=== PATIENT | female | born 1945 | race Caucasian/White ===

== ENCOUNTER 2018-01-01 18:11 | Observation (INO) | payer MEDICARE ==
[~2018-01-01] VITALS: Ht 157.5 cm; Wt 59.7 kg
[~2018-01-01 18:11] MED LIST: ASPI81CH PO; ASPI81EC PO; Aspir 8181 MG PO; CALCA500CH PO; CALCAVITD PO; CALCAVITDA PO; CENTRUM COMPLE1 EACH PO; CEPH500 PO; Colace100 MG PO; ENOX40I INJ; Fosamax70 MG PO; Golytely Packe1 EACH PO; HYDACE10B PO; HYDACE5325 PO; Hair, Skin & N1 EACH PO; IBUP400 PO; LORA1 PO; MECL25 PO; MULTIVITAMIN PO; OXYACE5T PO; PRAV10 PO; PRAV20 PO; PRAVASTATIN SOD10 MG PO; PROM25 PO; Percocet 5-3251 EACH PO; Pravachol20 MG PO; [UNRECOGNIZED DRUG - OTHER] PO; [UNRECOGNIZED DRUG - REMARK]
[2018-01-01 19:09] LABS: BASOPHILS ABSOLUTE AUTO 0.01 K/mm3 (0.00-0.23); BASOPHILS PERCENT AUTO 0 % (0-2); EOSINOPHILS ABSOLUTE AUTO 0.06 K/mm3 (0.00-0.68); EOSINOPHILS PERCENT AUTO 1 % (0-6); Hematocrit 37.8 % (33.0-51.0); Hemoglobin 12.4 g/dL (11.5-16.0); IMMATURE GRAN ABSOLUTE AUTO 0.02 K/mm3 (0.00-0.10); IMMATURE GRAN PERCENT AUTO 0 % (0-1); LYMPHOCYTES ABSOLUTE AUTO 1.03 K/mm3 (0.84-5.20); LYMPHOCYTES PERCENT AUTO 11 % (21-46); MONOCYTES PERCENT AUTO 6 % (4-13); Mean Corpuscular HGB 30.6 pg (26.0-34.0); Mean Corpuscular HGB Conc 32.8 g/dL (31.5-36.5); Mean Corpuscular Volume 93 fL (80-100); Mean Platelet Volume 9.8 fL (9.1-12.4); NEUTROPHILS PERCENT AUTO 82 % (41-73); Platelet Count 207 K/mm3 (150-400); RDW Coefficient Variation 13.2 % (11.7-14.2); RDW Standard Deviation 45.5 fL (35.1-46.3); Red Blood Cell Count 4.05 M/mm3 (3.80-5.20); White Blood Cell Count 9.52 K/mm3 (4.00-11.30)
[2018-01-01 19:30] LABS: Bicarbonate Venous 25.3 mmol/L (24.0-30.0); PCO2 Venous 46.1 mmHg (38-42); PO2 Venous 43.7 mmHg (38-42); pH Blood Venous 7.38 (7.34-7.37)
[2018-01-01 19:55] LABS: Alanine Aminotransfer (ALT/SGP 27 U/L (12-78); Albumin, Blood 3.5 g/dL (3.4-5.0); Albumin/Globulin Ratio 1.1 (0.8-1.8); Alk Phos 57 U/L (50-136); Anion Gap 7 mmol/L (6-16); Aspartate Aminotrans (AST/SGOT 24 U/L (12-37); Bilirubin, Total 0.3 mg/dL (0.1-1.0); Blood Urea Nitrogen 24 mg/dL (8-24); Bun/Creatinine Ratio 24.8 (12.0-20.0); CO2, Blood 26 mmol/L (21-32); Chloride, Blood 108 mmol/L (98-108); Creatinine, Blood 0.97 mg/dL (0.40-1.00); Globulin, Blood 3.2 g/dL (2.2-4.0); Glomerular Filtration Rate >60 (60-); Glucose, Blood 99 mg/dL (70-99); Potassium, Blood 3.8 mmol/L (3.5-5.5); Sodium, Blood 141 mmol/L (136-145); Total Protein, Blood 6.7 g/dL (6.4-8.2); Troponin I <0.015 ng/mL (0.000-0.040)
[2018-01-01] MEDS ORDERED: SUCR1 PO (23:48)
[2018-01-01] MEDS ORDERED: Pantoprazole So40 MG (23:48)
[2018-01-01] MEDS ORDERED: SHINGRIX V50 MCG/0.5 PO (23:52)
[2018-01-02 02:35] LABS: BASOPHILS ABSOLUTE AUTO 0.02 K/mm3 (0.00-0.23); BASOPHILS PERCENT AUTO 0 % (0-2); EOSINOPHILS ABSOLUTE AUTO 0.11 K/mm3 (0.00-0.68); EOSINOPHILS PERCENT AUTO 2 % (0-6); Hematocrit 35.1 % (33.0-51.0); Hemoglobin 11.7 g/dL (11.5-16.0); IMMATURE GRAN ABSOLUTE AUTO 0.01 K/mm3 (0.00-0.10); IMMATURE GRAN PERCENT AUTO 0 % (0-1); LYMPHOCYTES PERCENT AUTO 31 % (21-46); MONOCYTES ABSOLUTE AUTO 0.53 K/mm3 (0.16-1.47); MONOCYTES PERCENT AUTO 9 % (4-13); Mean Corpuscular HGB 30.7 pg (26.0-34.0); Mean Corpuscular HGB Conc 33.3 g/dL (31.5-36.5); Mean Corpuscular Volume 92 fL (80-100); Mean Platelet Volume 10.5 fL (9.1-12.4); NEUTROPHILS PERCENT AUTO 58 % (41-73); Platelet Count 209 K/mm3 (150-400); RDW Coefficient Variation 13.2 % (11.7-14.2); RDW Standard Deviation 45.2 fL (35.1-46.3); Red Blood Cell Count 3.81 M/mm3 (3.80-5.20); White Blood Cell Count 6.07 K/mm3 (4.00-11.30)
[2018-01-02] MEDS ORDERED: ASPI81CH PO (13:57)
== END 2018-01-02 14:10 | disposition home or self-care (01) ==
LOC: ER 18:11 → MEDS 18:12 → ENPENDDIS 01-02 14:06 → MEDS 01-02 14:10
PROVIDERS: Emergency Medicine; Nurse Practitioner Acute Care
DX: R07.9 Chest pain, unspecified (principal); E78.5 Hyperlipidemia, unspecified; K21.9 Gastro-esophageal reflux disease without esophagitis; M19.90 Unspecified osteoarthritis, unspecified site; I25.2 Old myocardial infarction; Z87.891 Personal history of nicotine dependence; Z79.899 Other long term (current) drug therapy; Z82.49 Family history of ischemic heart disease and other diseases of the circulatory system
CPT/HCPCS: 36415; 71046; 80053; 82803; 83735; 84443; 84484; 85025; 93005; 93010; 99285-25; G0378

== ENCOUNTER → 2019-02-06 | Outpatient (CLI) | payer MEDICARE ==
[~2019-02-06] MED LIST changes: +Isosorbide Mono30 MG PO; +PANT40 PO; +Pantoprazole So40 MG; +SHINGRIX V50 MCG/0.5 PO; +SUCR1 PO; +Vitamin B Comple1 EA PO; +Vitamin D2000 UNIT PO
== END ==
LOC: LAB EV 16:00 → LAB SHORT 16:00
DX: R30.9 Painful micturition, unspecified (principal)
CPT/HCPCS: 87086

== ENCOUNTER → 2019-03-16 | Outpatient (CLI) | payer MEDICARE | LOC: LAB SHORT 12:28 → LAB 12:28 | DX: M54.5 Low back pain (principal) | CPT/HCPCS: 87086 ==

== ENCOUNTER → 2019-06-21 | Outpatient (CLI) | payer MEDICARE | END | disposition home or self-care (01) | LOC: PLD 11:45 → LAB SHORT 11:45 | DX: L57.0 Actinic keratosis (principal) | CPT/HCPCS: 88305 ==

== ENCOUNTER → 2020-04-11 | Outpatient (CLI) | payer MEDICARE ==
[~2020-04-11] MED LIST changes: +AMLODIPINE BES2.5 MG PO; +CALCIUM PO; +ENOX40I SC; +OXYC5 PO; +PROMETHAZINE12.5 M1 PO; +SULTRIDS PO; +ZINC PO
== END | disposition home or self-care (01) ==
LOC: LAB EV 12:58
DX: R30.9 Painful micturition, unspecified (principal)
CPT/HCPCS: 87077; 87086; 87186

== ENCOUNTER 2020-05-14 05:58 | Day surgery (SDC) | payer MEDICARE ==
[~2020-05-14] VITALS: Ht 157.5 cm; Wt 70.0 kg
[~2020-05-14 05:58] MED LIST changes: -ENOX40I SC; -OXYC5 PO; -PROMETHAZINE12.5 M1 PO; -SULTRIDS PO; -ZINC PO
[2020-05-14] MEDS ORDERED: ZINC PO (06:37)
--- NOTE | 2020-05-14 06:44 | NUR ---
History, Chart, Medications and Allergies reviewed before start of procedure. Pre-Op teaching done. Pt verbalizes understanding. PT HAD WEDDING RING ON, WAS ABLE TO REMOVE AND PLACED IN PT RED BELONGING BAG IN A PLASTIC BAGGIE WITH HER PT LABEL ON IT.
--- NOTE | 2020-05-14 15:55 | NUR ---
PT RECENTLY WORKED WITH THERAPY. PT UP IN CHAIR. PT 100% ON ROOM AIR. PT DENIED BEING DIZZY OR LIGHTHEADED. THERAPY STILL IN ROOM TALKING WITH PT.
--- NOTE | 2020-05-14 16:13 | NUR ---
SHIFT SUMMARY PT EARLIER ABLE TO WIGGLE TOES BUT WAS UNABLE TO LIFT LEG. PT RECENTLY ABLE TO LIFT LEG. PT WORKED WITH THERAPY. PT UP IN CHAIR. PT NOT CLEAR TO GO HOME TONIGHT. PT REPORTS PAIN IN L SHOULDER MUCH BETTER. DENIES PAIN TO HIP. PT REFUSED TYLENOL, REPORTS WILL TAKE TORDOL WHEN SCHEDULED. PT REPORTED TO VOID.
--- NOTE | 2020-05-14 16:53 | NUR ---
PT RECENTLY REPORTING WANTING TYLENOL AFTER WORKING WITH THERAPY.
--- NOTE | 2020-05-15 04:20 | NUR ---
SHIFT SUMMARY PT IS A/O X4. SBA WITH FWW AND GAIT BELT. HAS BEEN UP TO BATHROOM MULT TIMES OVERNIGHT, AMBULATING WELL. PAIN MANAGED WITH PO PAIN MED, TYLENOL, AND TORADOL PER ORDERS. DENIES NAUSEA OVERNIGHT. TOLERATING PO INTAKE AND VOIDING. PT HAS BEEN UP IN CHAIR DURING THE SHIFT WITH LEGS ELEVATED AND POLAR PACK IN PLACE. PT RESTING AT THIS TIME, CALL LIGHT IN REACH.
[2020-05-15 04:31] LABS: BASOPHILS ABSOLUTE AUTO 0.01 K/mm3 (0.00-0.23); BASOPHILS PERCENT AUTO 0 % (0-2); EOSINOPHILS PERCENT AUTO 0 % (0-6); Hematocrit 28.5 % (33.0-51.0); Hemoglobin 9.2 g/dL (11.5-16.0); IMMATURE GRAN ABSOLUTE AUTO 0.04 K/mm3 (0.00-0.10); IMMATURE GRAN PERCENT AUTO 0 % (0-1); LYMPHOCYTES ABSOLUTE AUTO 1.13 K/mm3 (0.84-5.20); LYMPHOCYTES PERCENT AUTO 10 % (21-46); MONOCYTES ABSOLUTE AUTO 1.06 K/mm3 (0.16-1.47); MONOCYTES PERCENT AUTO 10 % (4-13); Mean Corpuscular HGB 29.6 pg (26.0-34.0); Mean Corpuscular HGB Conc 32.3 g/dL (31.5-36.5); Mean Corpuscular Volume 92 fL (80-100); Mean Platelet Volume 10.1 fL (9.1-12.4); NEUTROPHILS ABSOLUTE AUTO 8.96 K/mm3 (1.96-9.15); NEUTROPHILS PERCENT AUTO 80 % (41-73); Platelet Count 174 K/mm3 (150-400); RDW Coefficient Variation 13.4 % (11.7-14.2); RDW Standard Deviation 45.7 fL (35.1-46.3); Red Blood Cell Count 3.11 M/mm3 (3.80-5.20)
[2020-05-15 04:51] LABS: Anion Gap 5 mmol/L (6-16); Blood Urea Nitrogen 22 mg/dL (8-24); Bun/Creatinine Ratio 32.6 (12.0-20.0); CO2, Blood 27 mmol/L (21-32); Calcium, Blood 8.8 mg/dL (8.5-10.1); Chloride, Blood 109 mmol/L (98-108); Creatinine, Blood 0.68 mg/dL (0.40-1.00); Glomerular Filtration Rate >60 (60-); Glucose, Blood 117 mg/dL (70-99); Potassium, Blood 4.4 mmol/L (3.5-5.5); Sodium, Blood 141 mmol/L (136-145)
--- NOTE | 2020-05-15 09:19 | NUR ---
THERAPY HERE WITH PT. FAMILY PRESENT FOR THERAPY.
--- NOTE | 2020-05-15 10:18 | NUR ---
THERAPY IN ROOM.
--- NOTE | 2020-05-15 11:37 | NUR ---
THERAPY REPORTED PT TO HAVE OUTPT THERAPY. PT REQ TO HAVE OUTPT THERAPY, NOT HOME HEALTH. DISCUSSED WITH DR/OFFICE, REPORTED TO CANCEL HOME HEALTH. STRATEGIC PLANNING CONSULTANT NOTIFIIED.
[2020-05-15] MEDS ORDERED: ENOX40I SC (12:37)
[2020-05-15] MEDS ORDERED: OXYC5 PO (12:38)
[2020-05-15] MEDS ORDERED: PROMETHAZINE12.5 M1 PO (12:38)
[2020-05-15] MEDS ORDERED: SULTRIDS PO (12:39)
--- NOTE | 2020-05-15 12:55 | NUR ---
DISCHARGE: PT EATING AND DRINKING, PT REPORTS NO MORE NAUSEA. PT REPORTS PAIN CONTROLLED ON PO PAIN MEDICATION. PT/FAMILY REPORTS UNDERSTANDING OF DISCHARGE INSTRUCTIOINS. PT SENT WITH DRESSING SUPPLIES, SCRIPT, ICE MACHINE AND BELONGINGS. FAMILY GIVING PT RIDE HOME. PT BEEN CLEARED BY THERAPY TO GO HOME WITH OUTPT THERAPY WHICH PT AND FAMILY AGREE TO.
== END 2020-05-15 13:24 | disposition home or self-care (01) ==
LOC: ORSCMMR 05:58 → SURS 06:48 → ORSCMMR 06:48 → ORD 07:30 → SURS 10:48 → ORSCMMR 05-15 13:24
PROVIDERS: Orthopaedic Surgery
PROC: 0SR90JA Replacement of Right Hip Joint with Synthetic Substitute, Uncemented, Open Approach (ICD-10-PCS; principal; 2020-05-14 07:30)
PROC: 8E0YXBZ Computer Assisted Procedure of Lower Extremity (ICD-10-PCS; principal; 2020-05-14 07:30)
DX: M16.11 Unilateral primary osteoarthritis, right hip (principal); I10 Essential (primary) hypertension; E78.00 Pure hypercholesterolemia, unspecified; I25.2 Old myocardial infarction; Z79.899 Other long term (current) drug therapy; Z79.82 Long term (current) use of aspirin
CPT/HCPCS: 36415; 72170; 80048; 83735; 85025; 88300; 97110; 97110-CQ; 97116; 97116-CQ; 97161; 97166; 97530; 97530-CQ; 97535; A9270; C1713; C1776; J0171; J0690; J0735; J1100; J1650; J1885; J2250; J2370; J2405; J2704; J2795; J3010; J3370; J7120

== ENCOUNTER 2020-06-19 11:44 | Emergency (ER) | payer MEDICARE ==
[~2020-06-19] VITALS: Ht 157.5 cm; Wt 67.1 kg
[~2020-06-19 11:44] MED LIST changes: +ENOX40I SC; +OXYC5 PO; +PROMETHAZINE12.5 M1 PO; +SULTRIDS PO; +ZINC PO
[2020-06-19 12:44] LABS: BASOPHILS ABSOLUTE AUTO 0.06 K/mm3 (0.00-0.23); BASOPHILS PERCENT AUTO 1 % (0-2); EOSINOPHILS ABSOLUTE AUTO 0.23 K/mm3 (0.00-0.68); EOSINOPHILS PERCENT AUTO 3 % (0-6); Hematocrit 40.8 % (33.0-51.0); Hemoglobin 12.8 g/dL (11.5-16.0); IMMATURE GRAN ABSOLUTE AUTO 0.02 K/mm3 (0.00-0.10); IMMATURE GRAN PERCENT AUTO 0 % (0-1); LYMPHOCYTES ABSOLUTE AUTO 1.76 K/mm3 (0.84-5.20); LYMPHOCYTES PERCENT AUTO 24 % (21-46); MONOCYTES ABSOLUTE AUTO 0.55 K/mm3 (0.16-1.47); MONOCYTES PERCENT AUTO 8 % (4-13); Mean Corpuscular HGB Conc 31.4 g/dL (31.5-36.5); Mean Corpuscular Volume 93 fL (80-100); Mean Platelet Volume 9.9 fL (9.1-12.4); NEUTROPHILS ABSOLUTE AUTO 4.59 K/mm3 (1.96-9.15); NEUTROPHILS PERCENT AUTO 64 % (41-73); Platelet Count 243 K/mm3 (150-400); RDW Coefficient Variation 13.6 % (11.7-14.2); RDW Standard Deviation 46.6 fL (35.1-46.3); Red Blood Cell Count 4.41 M/mm3 (3.80-5.20); White Blood Cell Count 7.21 K/mm3 (4.00-11.30)
[2020-06-19 12:54] LABS: Anion Gap 6 mmol/L (6-16); CO2, Blood 26 mmol/L (21-32); Chloride, Blood 107 mmol/L (98-108); Glucose, Blood 86 mg/dL (70-99); Potassium, Blood 4.3 mmol/L (3.5-5.5); Sodium, Blood 139 mmol/L (136-145); Troponin I <0.015 ng/mL (0.000-0.040)
[2020-06-19 12:55] LABS: Alanine Aminotransfer (ALT/SGP 23 U/L (12-78); Albumin, Blood 3.7 g/dL (3.4-5.0); Alk Phos 109 U/L (50-136); Aspartate Aminotrans (AST/SGOT 21 U/L (12-37); Bilirubin, Total 0.3 mg/dL (0.1-1.0); Blood Urea Nitrogen 22 mg/dL (8-24); Bun/Creatinine Ratio 28.1 (12.0-20.0); Calcium, Blood 9.3 mg/dL (8.5-10.1); Creatinine, Blood 0.78 mg/dL (0.40-1.00); Globulin, Blood 3.6 g/dL (2.2-4.0); Glomerular Filtration Rate >60 (60-); Total Protein, Blood 7.3 g/dL (6.4-8.2)
== END 2020-06-19 15:55 | disposition home or self-care (01) ==
LOC: ER 11:44
PROVIDERS: Emergency Medicine
DX: R60.0 Localized edema (principal); Z79.82 Long term (current) use of aspirin; Z79.01 Long term (current) use of anticoagulants; Z87.891 Personal history of nicotine dependence; Z79.899 Other long term (current) drug therapy
CPT/HCPCS: 36415; 80053; 83880; 84484; 85025; 99283

== ENCOUNTER → 2020-10-25 | Outpatient (CLI) | payer MEDICARE | END | disposition home or self-care (01) | LOC: LAB SHORT 09:38 → LAB 09:38 | DX: R30.0 Dysuria (principal) | CPT/HCPCS: 87086 ==

== ENCOUNTER → 2020-12-03 | Outpatient (CLI) | payer MEDICARE | END | disposition home or self-care (01) | LOC: LAB 11:25 → LAB SHORT 11:25 | DX: L82.1 Other seborrheic keratosis (principal); L57.0 Actinic keratosis; L28.0 Lichen simplex chronicus | CPT/HCPCS: 88305 ==

== ENCOUNTER → 2021-01-19 | Outpatient (CLI) | payer MEDICARE | END | disposition home or self-care (01) | LOC: LAB 13:57 → LAB SHORT 13:57 | DX: N39.0 Urinary tract infection, site not specified (principal) | CPT/HCPCS: 87077; 87086; 87186 ==

== ENCOUNTER 2021-09-25 10:45 | Day surgery (SDC) | payer MEDICARE ==
[~2021-09-25] VITALS: Ht 154.9 cm; Wt 63.2 kg
== END 2021-09-25 13:24 | disposition home or self-care (01) ==
LOC: ORSCSDS 10:45
PROVIDERS: Internal Medicine Gastroenterology
PROC: 0DJD8ZZ Inspection of Lower Intestinal Tract, Via Natural or Artificial Opening Endoscopic (ICD-10-PCS; principal; 2021-09-25 11:15)
DX: Z12.11 Encounter for screening for malignant neoplasm of colon (principal); Z86.010 Personal history of colon polyps; K57.30 Diverticulosis of large intestine without perforation or abscess without bleeding; K64.8 Other hemorrhoids; Z87.891 Personal history of nicotine dependence; Z79.899 Other long term (current) drug therapy; Z79.82 Long term (current) use of aspirin
CPT/HCPCS: J2405; J2704; J7120

== ENCOUNTER → 2021-11-26 | Outpatient (CLI) | payer MEDICARE ==
[2021-11-26 14:46] LABS: BASOPHILS ABSOLUTE AUTO 0.06 K/mm3 (0.00-0.23); BASOPHILS PERCENT AUTO 1 % (0-2); EOSINOPHILS ABSOLUTE AUTO 0.13 K/mm3 (0.00-0.68); EOSINOPHILS PERCENT AUTO 2 % (0-6); Hematocrit 38.5 % (33.0-51.0); Hemoglobin 12.8 g/dL (11.5-16.0); IMMATURE GRAN ABSOLUTE AUTO 0.01 K/mm3 (0.00-0.10); IMMATURE GRAN PERCENT AUTO 0 % (0-1); LYMPHOCYTES ABSOLUTE AUTO 2.08 K/mm3 (0.84-5.20); LYMPHOCYTES PERCENT AUTO 30 % (21-46); MONOCYTES ABSOLUTE AUTO 0.51 K/mm3 (0.16-1.47); MONOCYTES PERCENT AUTO 7 % (4-13); Mean Corpuscular HGB 30.3 pg (26.0-34.0); Mean Corpuscular HGB Conc 33.2 g/dL (31.5-36.5); Mean Corpuscular Volume 91 fL (80-100); Mean Platelet Volume 10.5 fL (9.1-12.4); NEUTROPHILS ABSOLUTE AUTO 4.08 K/mm3 (1.96-9.15); NEUTROPHILS PERCENT AUTO 59 % (41-73); Platelet Count 215 K/mm3 (150-400); RDW Coefficient Variation 13.1 % (11.7-14.2); RDW Standard Deviation 43.7 fL (35.1-46.3); Red Blood Cell Count 4.23 M/mm3 (3.80-5.20); White Blood Cell Count 6.87 K/mm3 (4.00-11.30)
[2021-11-26 14:48] LABS: Bun/Creatinine Ratio 25.2 (12.0-20.0); Calcium, Blood 9.7 mg/dL (8.5-10.1); Creatinine, Blood 1.03 mg/dL (0.40-1.00); Potassium, Blood 4.3 mmol/L (3.5-5.5)
== END | disposition home or self-care (01) ==
LOC: LAB 14:37 → LAB SHORT 14:37
PROVIDERS: Chiropractor
DX: R07.9 Chest pain, unspecified (principal)
CPT/HCPCS: 80048; 84484; 85025; 85379

== ENCOUNTER → 2022-01-17 | Outpatient (CLI) | payer MEDICARE | END | disposition home or self-care (01) | LOC: LAB SHORT 11:45 → LAB 11:45 | DX: R30.0 Dysuria (principal) | CPT/HCPCS: 87077; 87086; 87186 ==

== ENCOUNTER 2023-02-23 10:36 | Emergency (ER) | payer MEDICARE ==
[~2023-02-23] VITALS: Ht 154.9 cm; Wt 65.8 kg
[2023-02-23 11:31] LABS: BASOPHILS ABSOLUTE AUTO 0.05 K/mm3 (0.00-0.23); BASOPHILS PERCENT AUTO 1 % (0-2); EOSINOPHILS ABSOLUTE AUTO 0.25 K/mm3 (0.00-0.68); EOSINOPHILS PERCENT AUTO 4 % (0-6); Hematocrit 42.3 % (33.0-51.0); IMMATURE GRAN ABSOLUTE AUTO 0.03 K/mm3 (0.00-0.10); IMMATURE GRAN PERCENT AUTO 0 % (0-1); LYMPHOCYTES ABSOLUTE AUTO 2.01 K/mm3 (0.84-5.20); LYMPHOCYTES PERCENT AUTO 29 % (21-46); MONOCYTES ABSOLUTE AUTO 0.62 K/mm3 (0.16-1.47); MONOCYTES PERCENT AUTO 9 % (4-13); Mean Corpuscular HGB 30.4 pg (26.0-34.0); Mean Corpuscular HGB Conc 33.1 g/dL (31.5-36.5); Mean Corpuscular Volume 92 fL (80-100); NEUTROPHILS ABSOLUTE AUTO 4.05 K/mm3 (1.96-9.15); NEUTROPHILS PERCENT AUTO 58 % (41-73); RDW Coefficient Variation 13.1 % (11.7-14.2); RDW Standard Deviation 44.4 fL (35.1-46.3); White Blood Cell Count 7.01 K/mm3 (4.00-11.30)
[2023-02-23 11:35] LABS: Albumin, Blood 3.8 g/dL (3.4-5.0); Albumin/Globulin Ratio 1.1 (0.8-1.8); Bilirubin, Total 0.4 mg/dL (0.1-1.0); Bun/Creatinine Ratio 20.3 (12.0-20.0); Calcium, Blood 9.6 mg/dL (8.5-10.1); Creatinine, Blood 0.94 mg/dL (0.40-1.00); Globulin, Blood 3.5 g/dL (2.2-4.0); Potassium, Blood 4.4 mmol/L (3.5-5.5); Total Protein, Blood 7.3 g/dL (6.4-8.2)
[2023-02-23] MEDS ORDERED: LISINOPRIL2.5 MG PO (15:25)
[2023-02-23 17:17] VITALS: BP 127/64
== END 2023-02-23 18:13 | disposition home or self-care (01) ==
LOC: ER 10:36
PROVIDERS: Student in an Organized Health Care Education/Training Program
DX: K92.1 Melena (principal); R10.30 Lower abdominal pain, unspecified; R04.0 Epistaxis; Z79.82 Long term (current) use of aspirin; Z79.899 Other long term (current) drug therapy; Z88.0 Allergy status to penicillin; Z88.2 Allergy status to sulfonamides; Z87.891 Personal history of nicotine dependence; Z87.19 Personal history of other diseases of the digestive system
CPT/HCPCS: 80053; 82272; 85025; 99284

== ENCOUNTER 2023-06-23 11:09 | Emergency (ER) | payer MEDICARE ==
[~2023-06-23] VITALS: Ht 154.9 cm; Wt 65.8 kg
[~2023-06-23 11:09] MED LIST changes: +LISINOPRIL2.5 MG PO
[2023-06-23 12:05] LABS: BASOPHILS ABSOLUTE AUTO 0.03 K/mm3 (0.00-0.23); BASOPHILS PERCENT AUTO 0 % (0-2); EOSINOPHILS ABSOLUTE AUTO 0.05 K/mm3 (0.00-0.68); EOSINOPHILS PERCENT AUTO 0 % (0-6); Hematocrit 45.6 % (33.0-51.0); Hemoglobin 15.2 g/dL (11.5-16.0); IMMATURE GRAN ABSOLUTE AUTO 0.06 K/mm3 (0.00-0.10); IMMATURE GRAN PERCENT AUTO 0 % (0-1); LYMPHOCYTES PERCENT AUTO 24 % (21-46); MONOCYTES ABSOLUTE AUTO 0.99 K/mm3 (0.16-1.47); MONOCYTES PERCENT AUTO 7 % (4-13); Mean Corpuscular HGB 29.2 pg (26.0-34.0); Mean Corpuscular HGB Conc 33.3 g/dL (31.5-36.5); Mean Corpuscular Volume 88 fL (80-100); Mean Platelet Volume 9.6 fL (9.1-12.4); NEUTROPHILS ABSOLUTE AUTO 9.77 K/mm3 (1.96-9.15); NEUTROPHILS PERCENT AUTO 68 % (41-73); Platelet Count 319 K/mm3 (150-400); RDW Coefficient Variation 13.4 % (11.7-14.2); RDW Standard Deviation 43.2 fL (35.1-46.3)
[2023-06-23 12:13] LABS: Albumin, Blood 3.6 g/dL (3.4-5.0); Bilirubin, Total 0.5 mg/dL (0.1-1.0); Bun/Creatinine Ratio 37.4 (12.0-20.0); Calcium, Blood 9.7 mg/dL (8.5-10.1); Creatinine, Blood 0.86 mg/dL (0.40-1.00); Globulin, Blood 3.7 g/dL (2.2-4.0); Potassium, Blood 4.7 mmol/L (3.5-5.5); Total Protein, Blood 7.3 g/dL (6.4-8.2)
[2023-06-23] MEDS ORDERED: ESCI10 PO (13:07)
[2023-06-23] MEDS ORDERED: NITR.4SL SL (15:59)
[2023-06-23] MEDS ORDERED: Nitroglycerin 0.4 MG SUBL SL ONE (16:00)
[2023-06-23 16:20] VITALS: BP 118/66
== END 2023-06-23 16:26 | disposition home or self-care (01) ==
LOC: ER 11:09
PROVIDERS: Physician Assistant
DX: R06.02 Shortness of breath (principal); R07.0 Pain in throat; Z87.891 Personal history of nicotine dependence; I25.2 Old myocardial infarction; Z79.899 Other long term (current) drug therapy; Z79.82 Long term (current) use of aspirin; Z88.0 Allergy status to penicillin; Z88.2 Allergy status to sulfonamides
CPT/HCPCS: 71046; 80053; 83880; 84484; 85025; 93005; 93010; 99284-25; A9270

== ENCOUNTER → 2024-08-20 | Outpatient (CLI) | payer MEDICARE ==
[~2024-08-20] MED LIST changes: +ESCI10 PO; +NITR.4SL SL; +SERT25 PO
== END ==
LOC: LAB 15:25 → LAB SHORT 15:25
DX: R30.0 Dysuria (principal)
CPT/HCPCS: 87077; 87086; 87186